=== PATIENT | female | born 1975 | race Caucasian/White ===

== ENCOUNTER 2020-12-31 07:30 | Inpatient (IN) | payer BC ==
[~2020-12-31] VITALS: Ht 167.6 cm; Wt 71.7 kg
[2021-01-21 17:32] LABS: BASOPHILS % (AUTO) 0.5 % (0-1); EOSINOPHILS # (AUTO) 0.1 X10'3 (0-0.9); EOSINOPHILS % (AUTO) 1.3 % (0-6); LYMPHOCYTES # (AUTO) 0.9 X10'3 (1.1-4.8); LYMPHOCYTES % (AUTO) 11.5 % (21-51); MEAN CORPUSCULAR HEMOGLOBIN 29.6 PG (27.0-31.0); MEAN CORPUSCULAR VOLUME 89.6 FL (78-98); MEAN PLATELET VOLUME 8.1 FL (7.4-10.4); MONOCYTES # (AUTO) 0.7 X10'3 (0-0.9); MONOCYTES % (AUTO) 8.7 % (2-12); NEUTROPHILS # (AUTO) 6.3 X10'3 (1.8-7.7); PRE OP HEMATOCRIT 43.1 % (35.0-45.0); PRE OP HEMOGLOBIN 14.2 g/dL (12.0-16.0); PRE OP PLATELET COUNT 160 X10'3 (140-440); RED BLOOD COUNT 4.81 X10'6 (4.20-5.60); RED CELL DISTRIBUTION WIDTH 19.9 % (11.5-14.5)
[2021-01-21 17:41] LABS: CLARITY,URINE SLIGHTLY CLOUDY (Clear); COLOR,URINE STRAW (Yellow); GLUCOSE, URINE NEGATIVE (Neg); KETONES,URINE NEGATIVE (Neg); LEUKOCYTE ESTERASE ,URINE TRACE (Neg); NITRITES, URINE NEGATIVE (Neg); OCCULT BLOOD,URINE NEGATIVE (Neg); PROTEIN,URINE NEGATIVE (Neg); UROBILINOGEN,URINE 0.2 E.U/dL (0.2-1.0)
[2021-01-21 17:44] LABS: URINE HCG NEGATIVE (NEG)
[2021-01-21 17:54] LABS: ALBUMIN 4.3 G/DL (3.4-5.0); ALBUMIN/GLOBULIN RATIO 1.3 (1.1-1.5); ALKALINE PHOSPHATASE 55 IU/L (46-116); BLOOD UREA NITROGEN 13 MG/DL (7-18); BUN/CREATININE RATIO 15.9 (6.6-38.0); CALCIUM 9.1 MG/DL (8.5-10.1); CHLORIDE 105 MMOL/L (99-107); CREATININE 0.82 MG/DL (0.40-0.90); PRE OP ALT 25 U/L (30-65); PRE OP ANION GAP 10 (8-16); PRE OP AST 16 U/L (10-37); PRE OP BILIRUB, TOTAL 1.3 MG/DL (0.0-1.0); PRE OP GLUCOSE 90 MG/DL (70-104); PRE OP POTASSIUM 3.7 MMOL/L (3.4-5.1); PRE OP SODIUM 141 MMOL/L (135-145); TOTAL CARBON DIOXIDE 26.1 MMOL/L (24-32); TOTAL PROTEIN 7.6 G/DL (6.4-8.2); eGFR 75 ML/MIN
[2021-01-21 18:33] LABS: UA COLLECTION TYPE CLN CATCH MIDSTREAM
[2021-01-21 18:34] LABS: MUCUS STRANDS FEW /LPF (Neg); SQUAMOUS EPITHELIAL CELL,UR MANY /LPF (FEW)
[2021-01-21 18:35] LABS: BACTERIA,URINE 1+ /HPF (Neg); RBC,URINE 0-2 /HPF (0-2); WBC,URINE 0-4 /HPF (0-4); YEAST FEW /HPF (NEGATIVE)
[2021-01-21 18:59] LABS: PLATELET ESTIMATE NORMAL
[2021-01-21 19:00] LABS: ANISOCYTOSIS 2+
[2021-01-21 19:01] LABS: ELLIPTOCYTES 2+; TEAR DROP CELLS FEW
[2021-01-27] MEDS ORDERED: NO HOME MEDS (11:15)
[2021-01-28] VITALS (33 sets, daily range): BP systolic 91–129; BP diastolic 41–87
[2021-01-28] MEDS ORDERED: ringers solution, lacted 1,000 ML IV SCH ×2 (05:00→07:35)
[2021-01-28] MEDS ORDERED: ceFOXitin 2GM-NS 100mL ADDvant 100 ML IV ONE (05:30)
[2021-01-28] MEDS ORDERED: famotidine 20mg tablet PO ONE (05:30)
[2021-01-28] MEDS ORDERED: LIDOcaine 1% (10mg/ml) 2ml vial ONE (06:54)
[2021-01-28] MEDS ORDERED: vasoPRESSIN 20 units/ml inj. ONE (07:09)
[2021-01-28] MEDS ORDERED: BUPIVAcaine/PF 2.5 mg/ml (0.25%) 30ml vial ONE (07:10)
[2021-01-28] MEDS ORDERED: epiNEPHrine 1 mg/ml inj ONE (07:10)
[2021-01-28] MEDS ORDERED: fentaNYL /PF 50mcg/ml 5ml ampule ONE (07:25)
[2021-01-28] MEDS ORDERED: propofol inj 20 ML IV ONE (07:25)
[2021-01-28] MEDS ORDERED: rocuronium 10mg/ml inj IV ONE (07:25)
[2021-01-28] MEDS ORDERED: midazolam 1 mg/ML 2ml injection ONE (07:25)
[2021-01-28] MEDS ORDERED: proCHLORperazine 10 MG/2 ml inj IV PRN (07:35)
[2021-01-28] MEDS ORDERED: morphine 4 MG/ML inj SYRINge IV PRN (07:35)
[2021-01-28] MEDS ORDERED: meperidine/PF 25mg/ml syringe IV PRN ×2 (07:35)
[2021-01-28] MEDS ORDERED: morphine 2 MG/ML inj. syringe IV PRN (07:35)
[2021-01-28] MEDS ORDERED: ondansetron/PF 4mg/2ml inj IV PRN ×2 (07:35→09:30)
[2021-01-28] MEDS ORDERED: ondansetron/PF 4mg/2ml inj ONE (07:42)
[2021-01-28] MEDS ORDERED: sevoflurane 250ml liquid IH ONE (07:42)
[2021-01-28] MEDS ORDERED: dexamethasone sod phosphate 4mg/ml inj. ONE (07:59)
[2021-01-28] MEDS ORDERED: metoclopramide 5 mg/ml inj IV PRN (09:30)
[2021-01-28] MEDS ORDERED: normal saline 500ml IV soln 500 ML IV PRN (09:30)
[2021-01-28] MEDS ORDERED: LORazepam 0.5 MG tablet PO PRN (09:30)
[2021-01-28] MEDS ORDERED: magnesium hydroxide 30ml (MOM) UD suspension PO PRN (09:30)
[2021-01-28] MEDS ORDERED: LORazepam 2 mg/ml vial IV PRN (09:30)
[2021-01-28] MEDS ORDERED: temazepam 15mg capsule PO PRN (09:30)
[2021-01-28] MEDS ORDERED: HYDROcodone/acetaminophen 10/325mg tab PO PRN (09:30)
[2021-01-28] MEDS ORDERED: diphenhydrAMINE 50 mg/ml inj IV PRN (09:30)
[2021-01-28] MEDS ORDERED: glycopyrrolate 0.2mg/ml inj ONE (09:36)
[2021-01-28] MEDS ORDERED: neostigmine methylsulfate 1 MG/ML 10ml vial ONE (09:36)
--- NOTE | 2021-01-28 09:39 | NUR ---
Received from OR via SURGICAL BED , accompanied by Anesthesiologist KATINA and report given by Anesthesiolgist. PATIENT WITH 20G PIV IN LEFT UE RUNNING LR AT 100. TRANSVERSE INCISION WELL APPROXIMATED WITH DERMABOND PRESENT. NO DRAIAGE. NO PHYSICAL DRESSING. SCDS DONNED. VSS. SONOROUS WITH 97% SATURATIONS ON 10L MASK. Addendum: 01/28/21 at 0949 by Karri Bates RN, RN Amended: Links added.
[2021-01-28] MEDS: meperidine/PF 25mg/ml syringe IV PRN ×2 (10:02→11:02)
--- NOTE | 2021-01-28 11:06 | NUR ---
PATIENT DEEP BREATHED AND COUGHED Q 10 MINUTES WHILE IN RR WITH COAXING. Addendum: 01/28/21 at 1107 by Karri Bates RN, RN Amended: Links added.
--- NOTE | 2021-01-28 12:39 | NUR ---
ALL CRITERIA FOR DC TO THE FLOOR HAS BEEN ACHIEVED. NO DRAINAGE FROM ABDOMINAL DRESSING. IV, SIMPSON CATHETER, INTACT. VSS. PAIN AT A TOLERABLE LEVEL. REQUESTS TORADOL UPON ARRIVAL. DID NOT WISH FOR NARCOTICS. IRMA HOWE PRESENT TO ACCEPT PATIENT. BED LOW, CALL LIGHT PRESENT, 3 RAILS UP. ONE BAG PLACED AT BEDSIDE. NO OTHER BELONGINGS. PATIENT VERBALIZED THANKFULNESS FOR CARE RECEIVED. Addendum: 01/28/21 at 1255 by Karri Powell - IRMA SOLIS Amended: Links added.
[2021-01-28] MEDS: ketorolac trometh. 30mg/ml inj. IV PRN ×2 (12:58→20:44)
[2021-01-28] MEDS: ringers solution, lacted 1,000 ML IV SCH ×3 (14:29→23:13)
[2021-01-28] MEDS: HYDROcodone/acetaminophen 10/325mg tab PO PRN (16:16)
--- NOTE | 2021-01-28 18:26 | NUR ---
Problems reprioritized. Patient report given, questions answered & plan of care reviewed with Prudence RN.
--- NOTE | 2021-01-28 18:49 | NUR ---
Patient in room [facility]. I have received report from CELINA SOLIS and had the opportunity to ask questions and assume patient care.
[2021-01-28] MEDS: docusate sod 100mg capsule PO SCH (20:39)
[2021-01-29] VITALS: BP 111/70
[2021-01-29 06:16] LABS: BASOPHILS % (AUTO) 0.2 % (0-1); EOSINOPHILS % (AUTO) 0 % (0-6); HEMATOCRIT 38.7 % (35.0-45.0); HEMOGLOBIN 12.8 g/dl (12.0-16.0); LYMPHOCYTES # (AUTO) 0.8 X10'3 (1.1-4.8); LYMPHOCYTES % (AUTO) 5.9 % (21-51); MEAN CORPUSCULAR HEMOGLOBIN 30.2 PG (27.0-31.0); MEAN CORPUSCULAR HGB CONC 33.2 g/dL (33.0-36.5); MEAN CORPUSCULAR VOLUME 90.9 FL (78-98); MEAN PLATELET VOLUME 8.1 FL (7.4-10.4); MONOCYTES # (AUTO) 1.1 X10'3 (0-0.9); MONOCYTES % (AUTO) 7.8 % (2-12); NEUTROPHILS # (AUTO) 11.6 X10'3 (1.8-7.7); NEUTROPHILS % (AUTO) 86.1 % (42-75); PLATELET COUNT 156 X10'3 (140-440); RED BLOOD COUNT 4.26 X10'6 (4.20-5.60); RED CELL DISTRIBUTION WIDTH 18.7 % (11.5-14.5); WHITE BLOOD COUNT 13.5 X10'3 (4.5-11.0)
--- NOTE | 2021-01-29 06:25 | NUR ---
Patient in room [facility]. I have received report from IRMA Tomlinson and had the opportunity to ask questions and assume patient care.
[2021-01-29 06:30] VITALS: BP 108/60
[2021-01-29 06:34] LABS: ALBUMIN 3.5 G/DL (3.4-5.0); ANION GAP 8 (8-16); BLOOD UREA NITROGEN 12 MG/DL (7-18); BUN/CREATININE RATIO 12.2 (6.6-38.0); CALCIUM 8.7 MG/DL (8.5-10.1); CHLORIDE 107 MMOL/L (99-107); CREATININE 0.98 MG/DL (0.40-0.90); GLUCOSE 106 MG/DL (70-104); POTASSIUM 3.7 MMOL/L (3.5-5.1); SODIUM 143 MMOL/L (135-145); eGFR 61 ML/MIN
--- NOTE | 2021-01-29 06:37 | NUR ---
Problems reprioritized. Patient report given, questions answered & plan of care reviewed with FRANCISCO RN.
[2021-01-29 07:36] LABS: PLATELET ESTIMATE NORMAL
[2021-01-29 07:37] LABS: ANISOCYTOSIS 2+; POIKILOCYTOSIS FEW
[2021-01-29] MEDS ORDERED: enoxaparin 40mg/0.4ml syringe SQ SCH (08:00)
[2021-01-29] MEDS: docusate sod 100mg capsule PO SCH (08:15)
[2021-01-29] MEDS: ketorolac trometh. 30mg/ml inj. IV PRN (08:30)
[2021-01-29] MEDS: ringers solution, lacted 1,000 ML IV SCH (08:45)
[2021-01-29] MEDS: HYDROcodone/acetaminophen 10/325mg tab PO PRN (08:46)
[2021-01-29 11:00] VITALS: BP 101/64
--- NOTE | 2021-01-29 11:50 | NUR ---
DC inst provided to pt. IV DC'd, tip intact. All belongings sent w/pt. WC to vehicle @ front entrance.
== END 2021-01-29 12:01 | disposition home or self-care (01) | DRG 743 ==
LOC: UNDOADMIN 01-28 05:40 → PAS IN 01-28 05:40 → SUR 3N 01-28 13:14 → PAS IN 01-28 13:14 → UNDODISIN 01-29 12:01
PROVIDERS: ADMIT Obstetrics & Gynecology Obstetrics; ATTEND Obstetrics & Gynecology Obstetrics
PROC: 0UT70ZZ Resection of Bilateral Fallopian Tubes, Open Approach (ICD-10-PCS; 2021-01-28)
PROC: 0UB00ZZ Excision of Right Ovary, Open Approach (ICD-10-PCS; 2021-01-28)
PROC: 0UT90ZZ Resection of Uterus, Open Approach (ICD-10-PCS; principal; 2021-01-28 07:42)
DX: D25.9 Leiomyoma of uterus, unspecified (principal); N83.8 Other noninflammatory disorders of ovary, fallopian tube and broad ligament
CPT/HCPCS: Z7506; Z7508; 36415; 71046; 80048; 80053; 81001; 81025; 82948; 85008; 85025; 87081; 93005; A4618; A7000; C1758; G0378; J0171; J0694; J1100; J1650; J1885; J2001; J2175; J2250; J2405; J2704; J2710; J3010; J3490; J7120; U0003